=== PATIENT | male | born 1955 | race Caucasian/White ===

== ENCOUNTER 2016-11-21 12:15 | Observation (INO) | payer BC ==
--- NOTE | ~2016-11-21 | HP ---
Unit #: [id number] #: [id number] Patient: MIKAEL CHIN [id number] [address] [place], [place] [address] [id number] I MR#: [id number] NAME: MIKAEL CHIN. ROOM: 465 Age: 61 Sex: M Admission Date: 11/21/2016 : 1955 Attending Physician: Aníbal Mota M.D. Primary Care Physician: Veronique Montanez M.D. HISTORY AND PHYSICAL CHIEF COMPLAINT Right fifth toe black discoloration. HISTORY OF PRESENT ILLNESS Mr. Mikael Chin is a pleasant 61-year-old male, who is known to me from my office with history of type 2 diabetes mellitus and hypertension, treated with the combination of oral hypoglycemic agents and insulin with last A1c of 6.5%. He noticed about 2 weeks ago some blister in his right fifth toe, but there was no cellulitis or any fever or chills. He had a callus at that place earlier. He has noticed gradual black discoloration of the right fifth toe and he came to the office and decision was made that he needs to be admitted for further evaluation. PAST MEDICAL HISTORY Type 2 diabetes mellitus, obesity, and hyperlipidemia. ALLERGIES Adhesive tape. FAMILY HISTORY Noncontributory. REVIEW OF SYSTEMS A 12-point review of system was completed. Please see HPI. Otherwise is unremarkable. HOME MEDICATIONS Include Lantus 40 units in the morning, 50 at bedtime; NovoLog 10 units with breakfast, 15 at lunch and 15 at supper; metformin 500 mg 2 tablets b.i.d.; fenofibrate 145 mg daily; Farxiga one tablet daily; omeprazole; Vytorin; and alprazolam 1 mg b.i.d. PHYSICAL EXAMINATION GENERAL: He is comfortable, in no acute distress. He is hemodynamically stable. VITAL SIGNS: Afebrile. HEENT: EOMI. Pupils are equally reactive to light. NECK: Supple. No thyromegaly noted. CHEST: Good air entry. CVS: Regular rhythm. No murmurs. ABDOMEN: Soft, nontender, bowel sounds positive. EXTREMITIES: His right fifth toe black discoloration. Unit #: [id number] #: [id number] Patient: CHIN,MIKAEL W ASSESSMENT 1. Right fifth toe gangrene. 2. Type 2 diabetes mellitus, well controlled with A1c 6.5%. PLAN We will get the surgical consult. Continue home insulin and medications. Hold the Farxiga and metformin. Keep patient n.p.o. overnight. Accu-Cheks a.c. and h.s. Dictated by Juan Car/chris TD: 11/22/2016 01:03 JOB #: [id number] HISTORY AND PHYSICAL X Aníbal Mota MD X HISTORY AND PHYSICAL
--- NOTE | ~2016-11-21 | HP ---
Unit #: [id number] #: [id number] Patient: YADI CHIN [id number] [facility]. [place], [place] [address] [id number] I MR#: [id number] NAME: YADI CHIN. ROOM: 465 Age: 61 Sex: M Admission Date: 11/21/2016 : 1955 Attending Physician: Aníbal Mota M.D. Referring Physician: Aníbal Mota M.D. Primary Care Physician: Veronique Montanez M.D. HISTORY AND PHYSICAL HISTORY AND EXAM Mr. Chin is a 61-year-old gentleman with a history of diabetes, who was doing some hiking through [place] and developed some discomfort on the plantar surface of the fifth digits. He noted that he had a blood blister after doing some extensive walking and has had this happen previously and it cleared up with watchful waiting. This time, however, he has developed an eschar on the plantar surface of the fifth digit that although no painful is not healing and on evaluation does not look like something that will spontaneously resolve. Patient has some mild neuropathy but does not appear to have any skin or nail changes and he has excellent distal pulses. PAST MEDICAL HISTORY Hypertension, type 2 diabetes, obstructive sleep apnea, uses CPAP, osteoarthritis, diverticulitis, hyperlipidemia, stage 2 colon cancer. He has had a partial colectomy and he has also had some epidurals for a disc herniation. ALLERGIES Adhesive tape. CURRENT MEDICATIONS Lantus, Glucophage, lisinopril, Prilosec, and low dose aspirin. He is on Farxiga, fenofibrate, Trulicity, NovoLog, Vytorin, folic acid, and vitamin B12. FAMILY HISTORY Noncontributory. SOCIAL HISTORY Denies the use of alcohol or tobacco. , lives at home. REVIEW OF SYSTEMS Otherwise unremarkable. PHYSICAL EXAMINATION GENERAL: On examination he is afebrile. VITAL SIGNS: Stable. Awake, alert and oriented. HEENT: Unremarkable. CARDIAC: Regular rhythm. LUNGS: Clear. ABDOMEN: Soft. EXTREMITIES: Lower extremities he has normal appearing feet bilaterally. He has no skin or nail changes. He has feeling throughout his feet, Unit #: [id number] #: [id number] Patient: YADI CHIN although he says he has some mild neuropathy and that he occasionally has numbness and tingling. He has excellent dorsalis pedis and posterior tibial pulses bilaterally. He has excellent capillary refill. On the plantar surface of the fifth digit on both sides with the right being far greater than the left, there is evidence on the left of some ecchymosis that is minimal. But on the right, he has a full thickness eschar. DIAGNOSTIC STUDIES LABORATORY STUDIES: Basic metabolic panel is normal. White count 7,500, hemoglobin 14.6, platelets 267,000. ASSESSMENT AND PLAN 61-year-old gentleman with a traumatic eschar on the plantar surface of the fifth digit on the right foot. Will need debridement. Due to the full thickness eschar, this will probably not separate and heal without surgical debridement. I have discussed this with the patient and he understands risks, benefits, complications and agrees to proceed. I have asked Dr. Major from our practice to see the patient and he will perform the procedure today. Dictated by Juvenal Putnam M.D. CLAUDIA/evelin TD: 11/22/2016 07:13 JOB #: [id number] HISTORY AND PHYSICAL X Juvenal Putnam MD HISTORY AND PHYSICAL
[~2016-11-21 12:15] MED LIST: ADVICOR 500 MG1 EACH PO; ADVICOR PO; BYDUREON P2 MG/0.65 SQ; COLACE PO; CYANOCOBAL1000 MCG/M INJ; DISCONTINUED MED SUBQ; FARXIGA5 MG PO; FENOFIBRATE145 M1 PO; FOLIC ACID800 MCG; GABAPENTIN300 MG PO; HUMALOG100 U/M2 SQ; HUMALOG100 U/ML; HUMALOG100 U/ML SQ; HUMALOG100 U/ML SUBQ; LANTUS100 U/M1 SQ; LANTUS100 U/ML SUBQ; LISINOPRIL10 MG PO; LOVAZA1 G PO; LOVENOX; LOVENOX100 MG/ML INJ; LOW DOSE ASPIRI81 M1 PO; METFORMIN PO; NOVOLOG FL100 UNIT/1; NOVOLOG100 U/M2; OMEGA-3 ACID ETH1 GM PO; PERCOCET 5-3251 TAB PO; PHENERGAN25 MG PO; PRILOSEC20 M1 PO; SERTRALINE HCL100 MG PO; TRULICITY1.5 MG/0.5 SQ; VITAMIN B122500 MCG; VOLTAREN75 MG PO; VYTORIN 10-40 M1 TAB PO
[2016-11-22 03:54] LABS: BASOPHIL# 0.1 X10e3 (0-0.3); BASOPHIL% 0.7 % (0-2.5); DIFF IND NO; EOSINOPHIL# 0.2 X10e3 (0-0.7); EOSINOPHIL% 2.2 % (0.0-7.0); HEMOGLOBIN 14.6 gm/dL (13.0-16.0); LYMPHOCYTE# 3.7 X10e3 (1.0-3.5); LYMPHOCYTE% 49.4 % (17.0-45.0); MEAN CELL VOLUME 92.1 FL (83-96); MEAN CORPUSCULAR HEMOGLOBIN 30.7 PG (28-34); MEAN CORPUSCULAR HGB CONC 33.3 g/dL (30-36); MEAN PLATELET VOLUME 7.6 FL (6.5-11.5); MONOCYTE# 0.5 X10e3 (0-1.0); MONOCYTE% 6.6 % (3.0-12.0); NEUTROPHIL# 3.1 X10e3 (1.5-7.1); NEUTROPHIL% 41.1 % (40-75); PLATELET COUNT 267 X10e3 (140-420); RED BLOOD COUNT 4.77 X10e (3.90-5.60); RED CELL DISTRIBUTION WIDTH 14.9 % (11.0-15.5); WHITE BLOOD COUNT 7.5 X10e3 (4.0-10.5)
[2016-11-22 04:20] LABS: BUN/CREATININE RATIO 16.92; CREATININE SERUM 1.3 mg/dL (0.6-1.4); GLOM FILT RATE Estimated 59.8 mL/min (>60); POTASSIUM 3.7 mmol/L (3.5-5.1)
== END 2016-11-22 13:04 | disposition home or self-care (01) | DRG 301 ==
LOC: C4C 12:15
PROVIDERS: Internal Medicine Endocrinology, Diabetes & Metabolism
DX: I96 Gangrene, not elsewhere classified (principal); E11.9 Type 2 diabetes mellitus without complications; Z79.4 Long term (current) use of insulin; Z79.84 Long term (current) use of oral hypoglycemic drugs; G47.33 Obstructive sleep apnea (adult) (pediatric); I10 Essential (primary) hypertension; Z85.038 Personal history of other malignant neoplasm of large intestine; E78.5 Hyperlipidemia, unspecified; Z91.048 Other nonmedicinal substance allergy status
CPT/HCPCS: 80048; 82947; 85025; G0378

== ENCOUNTER 2017-02-17 10:10 | Emergency (ER) | payer BC ==
--- NOTE | ~2017-02-17 | CR141 ---
[facility]. [facility] A Service of [facility] & [facility] RADIOLOGY TEXT RESULTS PATIENT: YADI CHNI LOCATION: SED : 57 UNIT #: [id number] AGE: [address]: Chris Bolden MD SEX: M ORDER DR: [id number] E MR#: [id number] Acc #: [id number] NAME: YADI CHIN. : 1955 SEX: M STUDY DATE/TIME: 02/17/2017 10:28 UNIT: SED ROOM: STUDY DESCRIPTION: CR Hand Min 3 Views Lt Attending Physician: Chris Bolden M.D. Ordering Physician: Chris Bolden M.D. Primary Care Physician: Veronique Montanez M.D. MEDICAL IMAGING REPORT This report is preliminary unless electronic signature is present. EXAM Left hand. INDICATION Left hand pain, after falling 5 days ago. FINDINGS AP, lateral, and oblique projections of the hand show good mineralization with normal carpal, metacarpal, and phalangeal anatomy without indication of fracture, dislocation, or soft tissue radiopaque foreign body. IMPRESSION Normal left hand. Dictated by... Matthew Monae M.D. THIS IS AN ELECTRONICALLY VERIFIED REPORT Matthew Monae M.D. at 02/18/2017 7:02 AM LYSSA/ann TD: 02/17/2017 18:33 JOB #: [id number] MEDICAL IMAGING REPORT Page 1 of 1
--- NOTE | ~2017-02-17 | CR281 ---
[facility]. [facility] A Service of [facility] & [facility] RADIOLOGY TEXT RESULTS PATIENT: YADI CHIN LOCATION: SED : 57 UNIT #: [id number] AGE: [address]: Chris Bolden MD SEX: M ORDER DR: [id number] E MR#: [id number] Acc #: [id number] NAME: YADI CHIN. : 1955 SEX: M STUDY DATE/TIME: 02/17/2017 10:28 UNIT: SED ROOM: STUDY DESCRIPTION: CR Wrist Min 3 View Lt Attending Physician: Chris Bolden M.D. Ordering Physician: Chris Bolden M.D. Primary Care Physician: Veronique Montanez M.D. MEDICAL IMAGING REPORT This report is preliminary unless electronic signature is present. EXAM Left wrist. INDICATION Left wrist pain after falling 5 days ago. FINDINGS Wrist evaluation in multiple projections shows normal mineralization of the bony structures about the wrist and satisfactory articular relationship of the radius and ulna to the proximal carpal row and of the distal carpal segments to the metacarpal bases. There is no indication of fracture or dislocation, and no soft tissue radiopaque foreign body is present. No congenital defects are apparent. IMPRESSION Normal left wrist. Dictated by... Matthew Monae M.D. THIS IS AN ELECTRONICALLY VERIFIED REPORT Matthew Monae M.D. at 02/18/2017 7:02 AM LYSSA/ann TD: 02/17/2017 18:32 JOB #: [id number] MEDICAL IMAGING REPORT Page 1 of 1
[2017-02-17] MEDS ORDERED: TRACEBA (10:21)
== END 2017-02-17 10:50 | disposition home or self-care (01) ==
LOC: SED 10:10
DX: S60.222A Contusion of left hand, initial encounter (principal); I10 Essential (primary) hypertension; E11.9 Type 2 diabetes mellitus without complications; Z88.8 Allergy status to other drugs, medicaments and biological substances; Z79.82 Long term (current) use of aspirin; Z79.84 Long term (current) use of oral hypoglycemic drugs; Z79.899 Other long term (current) drug therapy; W11.XXXA Fall on and from ladder, initial encounter; Y92.9 Unspecified place or not applicable
CPT/HCPCS: 73110; 73130; 99283